=== PATIENT | male | born 1950 | race Caucasian/White ===

== ENCOUNTER 2016-08-12 13:30 | Outpatient (RCR) | payer OTHER | END 2016-09-08 | disposition home or self-care (01) | LOC: PTY 13:30 | DX: M25.562 Pain in left knee (principal); G89.29 Other chronic pain | CPT/HCPCS: 97110; 97140; 97162; G0283 ==

== ENCOUNTER 2016-09-09 15:00 | Outpatient (RCR) | payer OTHER | END 2016-10-09 | disposition home or self-care (01) | LOC: PTY 15:00 | DX: M25.562 Pain in left knee (principal); G89.29 Other chronic pain | CPT/HCPCS: 97035; 97110; 97140; G0283 ==

== ENCOUNTER 2016-11-12 14:45 | Outpatient (RCR) | payer OTHER | END 2016-12-09 | disposition home or self-care (01) | LOC: PTY 14:45 | DX: M23.204 Derangement of unspecified medial meniscus due to old tear or injury, left knee (principal); M25.562 Pain in left knee; G89.29 Other chronic pain; Z86.73 Personal history of transient ischemic attack (TIA), and cerebral infarction without residual deficits; I10 Essential (primary) hypertension | CPT/HCPCS: 97110; 97140; 97161; G0283 ==